=== PATIENT | female | born 1950 | race Caucasian/White ===

== ENCOUNTER → 2017-03-07 | Outpatient (CLI) | payer MEDICARE, OTHER ==
[~2017-03-07] MED LIST: ALLERGY10 MG PO; AMARYL 4MG. TAB4 MG PO; ASPIRIN 81MG TA81 MG PO; BACTRIM DS 8001 TAB PO; FENOFIBRATE134 M1 PO; LIPITOR40 MG PO; LISINOPRIL 5MG T5 MG NG; MELOXICAM15 MG PO; METFORMIN 500M500 MG PO; NEXIUM40 MG PO; ONDANSETRON HYDR4 MG PO; SYNTHROID 0.0.075 MG PO; VYTORIN 10 MG-41 TAB PO
--- NOTE | 2017-03-09 11:08 | RADIOLOGY REPORT PS360 ---
DEXA SCAN.-BONE DENSITY STUDY HIPS AND LUMBAR SPINE HISTORY: Postmenopausal female osteopenia left hip history low calcium intake. Postmenopausal female. Early menopause. Hypothyroidism. TECHNIQUE levothyroxin. TECHNIQUE: DEXA scan hip and lumbar spine The most complete data summary and color graphic presentation of the today's ( and any prior ) DEXA findings are available in PACS. Definition and treatment guidelines included. COMPARISON: January 2015 DEXA LUMBAR SPINE: Normal bone density overall L2 vertebral body demonstrates the lowest T score 0.2 with BMD1.222 g/cm sq Overall mean lumbar L1-L4 T score 1.3 with BMD1.332. G/cm sq . Sclerosis at the L4/5 disc space the left and to the right at L3/4 a increased density in these regions. L1 and L2 appear to be the best comparison levels. These appear relatively stable 2015 prior DEXA the mean T score 1.2 with BMD was1.323g/cm sq Thus when comparing today's study to the prior exam there's been a 0.7% % increasing mean bone density at the lumbar spine- basically stable HIPS: Femoral neck density is best predictor of hip fracture risk . Both right and left femoral neck demonstrate T score -1.2 ... With left BMD0.869 g/cm sq . & right BMD 0.873 Averaging all regions yield today's Hip Mean T score -0.2 with BMD0.977 g/cm sq . 2015 DEXA average hip T score 0.0 with mean BMD1.012 g/cm sq Thus this reflects a 3.5% decreasein overall mean bone density at the hips in the interval. Which is to be expected over this interval time period IMPRESSION 1. LUMBAR SPINE: Normal bone density. 2. HIPS: Overall normal bone density. T score -0.2 Osteopenia of femoral neck bilateral with T-score here = -1.2 WHO criteria for post-menopausal, Women: Normal: T-score at or above -1 SD Osteopenia: T-score between -1 and -2.5 SD Osteoporosis: T-score at or below -2.5 SD
--- NOTE | 2017-03-09 11:41 | RADIOLOGY REPORT PS360 ---
MRI-LOW EXT ANY JOINT W/O-RT MRI right knee \ Ordering. 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 Posterior pain is worse. TECHNIQUE: Multiplanar multisequence imaging performed 1.5T MR COMPARISON January 2015 plain film right knee FINDINGS. Degenerative arthritic changes right knee. Most pronounced severe at medial compartment. Medial Compartment: with prominent diffuse chondral loss and thinning. There appears to be near [id number] appearance at the anterior aspect of medial joint space with reactive changes on both sides the joint here. We also encounter a generous 7 mm degenerative, subchondral cyst measuring beneath anterior/medial aspect of medial femoral condyle in this area. Reactive bone Changes extending throughout this region.. Also smaller subchondral cyst and reactive bone changes seen posteriorly at medial femoral condyle-overlying the posterior horn . Tricompartmental marginal osteophytes which are most pronounced about the medial compartment. With this the medial meniscus is displaced from the joint medially-accompanying these marginal osteophytes.] Medial meniscal degeneration & tear. Likely horizontal tear extending to the superior aspect of free margin at posterior meniscus but this continues with abnormal signal suggesting tear involving inferior margin body medial meniscus.. Lateral Compartment:. Overall Cartilage slightly better maintained but with areas chondral scuffing and thinning and irregularity most evident at tibial plateau. Some of signal irregularity of cartilage it tibial plateau may reflect the chondrocalcinosis seen here on 2014 plain film Generous subchondral, degenerative cystic measuring up to 9 mm height is seen beneath central aspect of the lateral tibial plateau- with Associated osteochondral defect/ irregularity The lateral meniscus overall better maintained. However The anterior horn does appear to be small & degenerated with likely prior minimal tear here.. Patellofemoral Joint. Cartilage surprisingly well-maintained at posterior patella only mild chondral thinning inferiorly. Normal patellofemoral relationships. Marginal osteophytes are seen surrounding the patella- femoral joint margins. Suspect old ACL tear. A Normal ACL is not visualized. ACL is intact with upper normal signal which could reflect prior Sprain or interstitial tear Patellar tendon and quadriceps tendon appear intact. Minimal fluid overlying the patellar tendon could reflect edema or focal inflammation here. The medial collateral ligament is intact. The marginal osteophytes and displaced meniscus to impinge upon the medial collateral ligament is seen on coronal image 17-15. The lateral collateral ligament is intact. There is joint effusion. Associated prominent generous Walsh's cyst. The Walsh's cyst extends over 8 cm length and its major portion. There may also be some additional synovial cyst or extensions of the Walsh's cyst superiorly behind the posterior aspect of the distal femoral metaphysis. Or variations Walsh's cyst more superiorly position behind the distal femoral metaphysis. These additional smaller cysts are seen surrounding near the insertion of the medial head of gastrocnemius upon distal femur . IMPRESSION: [ 1. Degenerative arthritic changes at the right knee-most severe at medial compartment. Details as in text Medial compartment w/ pronounced diffuse chondral thinning,. Basically [id number] appearance anterior aspect at medial compartment with Associated degenerative findings as detailed in text...... 2. Medial Meniscal Tear most evident Involving posterior horn and body. 3. Lateral compartment better maintained. But with degenerative changes & Chondral signal abnormalities & osteochondral irregularities most notable at/beneath lateral tibial plateau . Degeneration & likely old tear anterior horn lateral meniscus 4. Joint effusion with large Walsh's cyst. Additional likely related cystic areas along posterior aspect distal femur femur, most evident just above the insertion site of medial head gastrocnemius 5. Old ACL tear highly suspected.
== END ==
LOC: RAD 14:21
DX: M85.89 Other specified disorders of bone density and structure, multiple sites (principal); Z13.820 Encounter for screening for osteoporosis; M25.561 Pain in right knee

== ENCOUNTER 2017-06-15 14:18 | Emergency (ER) | payer MEDICARE, OTHER ==
[~2017-06-15] VITALS: Ht 160 cm; Wt 73.5 kg
[2017-06-15] MEDS ORDERED: GLIMEPIRIDE 2MG2 MG PO (14:50)
[2017-06-15] MEDS ORDERED: METFORMIN ER500 M1 PO (14:51)
[2017-06-15 15:07] LABS: URINE BILIRUBIN - DIPSTICK NEGATIVE (NEG); URINE BLOOD NEGATIVE (NEG)
[2017-06-15] MEDS ORDERED: ZITHROMAX Z PA250 MG PO (15:14)
[2017-06-15] MEDS ORDERED: FLONASE 50 MCG16 GM (15:14)
--- NOTE | 2017-06-15 15:15 | Urgent Treatment Center Report ---
History of Present Issue Date/Time Seen by Provider 06/15/17 1505 Visit Reason Pt arrived:Walked Presenting Problem:PT C/O ITCHY BURNING EYES,SORE THROAT,HEADACHE, BACK ACHE, URINARY FREQUENCY URGENCY. Location if Accident: Onset of symptoms date/time:06/15/17 or onset unknown for: Have you (or family members/close friends) recently traveled outside the [place]? N If Yes, where/when: Have you had exposure to infectious disease within the past month? TB? Other? Specify: Patient state that she has not been feeling well State that she thinks she may have a sinus infection States that she feels pressure under her eyes, her throat is sore, headache. States that she is also having pain in her lower back area and thinks she may be getting a UTI because she feels like she has to urinate alot ALLERGIES Coded Allergies: MDX - Ciprofloxacin (CIPROFLOXACIN) (Mild, pt gets sick feeling 05/13/15) Home Medications Reported Medications Esomeprazole Magnesium (Nexium 40MG Cap) 40 MG PO DAILY Levothyroxine Sodium (Synthroid 0.075MG) 0.075 MG PO DAILY ASPIRIN (Aspirin) 81 MG PO DAILY Loratadine (Allergy) 10 MG PO DAILY Glimepiride (Glimepiride 2MG Tablet) 2 MG PO QAM Metformin HCl (Metformin ER) 500 MG PO AC History Medical History General CAD? No Angina: No NV: No Hypertension? Yes Hyperlipidemia? Yes CHF? No DVT? No PE? No COPD? No Asthma? No Anemia? No GERD? Yes Gastric ulcers? Yes GI Bleed? No Hernia? Yes Thyroid Problems? Yes Hypothyroidism? Yes CVA? No Seizures? Yes Diabetes? Yes Insulin Dependent: No Insulin Pump: No Home FSBS? Yes Renal Insuffiency? No UTI? Yes Stones? No BPH? No GB Disease: No Nephritic Syndrome? No Asplenia? No Hepatitis? No Sickle Cell Disease? No Arthritis? No Migraines? No Cataracts? No Glaucoma? No MRSA? No HIV? No TB? No Anxiety? No Depression? No Cancer? No More? No Additional hx: ulcerative colitis, MRSA abscess Immunization HX DT/Tetanus 1996 Pneumonia no Surgical Hx Previous Surgery?Y Tubal Ligation Ileostomy Hernia repair Lt eye removed- INJURY carpal tunnel (left hand) Family History Family HX Diabetes Yes CAD Yes Hypertension Yes Hyperlipidemia Yes Cancer No TB No Social History Smoking Hx Smoker: Never Smoker Tobacco: No Packs/day N/A Alcohol Alcohol: No Review of Systems All Other Systems Reviewed and Negative Constitutional chills, fever Eyes no symptoms reported ENT ear pain, nose discharge, nose congestion, throat pain. Respiratory cough, denies shortness of breath, denies wheezing Psychiatric/Neurological headache Physical Exam Vital Signs Vital Signs Date Time Temp Pulse Resp B/P Pulse O2 O2 Flow FiO2 Ox Delivery Rate 06/15 1445 98.2 98 20 165/72 99 General Appearance normal appearance, WD/WN, no apparent distress Ear, Nose, Throat Tenderness noted maxillary sinuses throat red, irritated Respiratory Status Yes: trachea midline, chest symmetrical. No: respiratory distress. Cardiovascular normal exam, regular rate/rhythm, no peripheral edema Neurologic alert, normal exam, oriented x 3 Medical Decision Making LABS/Meds/Orders Pt receiving controlled substance in ED? No Results/Orders Laboratory Tests 06/15/17 1455: Urine Color YELLOW, Urine Appearance Cloudy, Urine pH 5.5, Ur Specific [place] 1.020, Urine Protein NEGATIVE, Urine Ketones NEGATIVE, Urine Blood NEGATIVE, Urine Nitrate NEGATIVE, Urine Bilirubin NEGATIVE, Urine Urobilinogen 0.2, Ur Leukocyte Esterase 1+ H, Urine Glucose 4+ H Orders Procedure Date/time Status [facility] URINE DIPSTICK 06/15 1455 Complete Departure Departure Time of Disposition 1513 Disposition DC Home or Self Care(routine) Clinical Impression Primary Impression: Upper respiratory infection Qualifiers: URI type: unspecified URI Qualified Code: J06.9 - Acute upper respiratory infection, unspecified Condition STABLE Referrals Jovita Toro APRN (Family): 2 Days-Call Office if no improvement or worsening of symptom Patient Instructions Cough, Sinus Headache, Sinusitis, Sore Throat Additional Instructions * Monitor Temp. Tylenol and/or Ibuprofen as needed. ER if fever is no less than 101 despite alternating Tylenol and Ibuprofen * Encourage fluids, water, Gatorade, powerade, pedialyte if infant/toddler/or child * Warm salt water gargles for throat irritation *Warm fluids *Sore throat lozenges *Sleep elevated *humidifier or vaporizer Lots of rest Increase fluids, water, Gatorade, powerade *Flonase 2 sprays each nostril daily but may take 2-3 days to notice improvement with it *Your throat swab was sent to lab for culture. Those results area typically sent to your primary care physician. Be sure to follow up in 2-3 days if no improvement so they can review those results and treat if necessary If you dont have primary care I recommend you get one, but in the mean time you will have to return to a walk in clinic Follow up IMMEDIATELY for new or worsening of symptoms OR no noticeable improvement over the next 48-72 hours. 911 immediately for any life threatening symptoms such as chest pain or difficulty breathing Discharge Counseling Counseled pt/family regarding diagnosis, test results, medications/RX, home care, follow up needs Prescriptions Current Visit Scripts Azithromycin (Zithromycin (Z-ROSSY) 250MG Tab) 250 MG PO DAILY #6 TAB TAKE TWO (2) TABLETS ON DAY 1, THEN ONE (1) TABLET DAY #2 THRU #5 Fluticasone Propionate (Flonase 50 Mcg Nasal [place]) 2 SPRAY NA DAILY #1 BOT at 0501
[2017-06-15 15:19] VITALS: BP 165/72
== END 2017-06-15 15:24 | disposition home or self-care (01) ==
LOC: UTC 14:18
PROVIDERS: Nurse Practitioner
DX: J06.9 Acute upper respiratory infection, unspecified (principal); I10 Essential (primary) hypertension; E78.5 Hyperlipidemia, unspecified; E03.9 Hypothyroidism, unspecified; E11.9 Type 2 diabetes mellitus without complications; Z79.84 Long term (current) use of oral hypoglycemic drugs; Z79.82 Long term (current) use of aspirin; Z79.899 Other long term (current) drug therapy

== ENCOUNTER → 2017-08-11 | Outpatient (CLI) | payer MEDICARE, OTHER ==
[~2017-08-11] MED LIST changes: +FLONASE 50 MCG16 GM; +GLIMEPIRIDE 2MG2 MG PO; +METFORMIN ER500 M1 PO; +ZITHROMAX Z PA250 MG PO
[2017-08-11 09:47] LABS: BUN 11 mg/dL (7-18)
[2017-08-11 09:59] LABS: GFR (ESTIMATED) 55 ML/MIN (59-)
== END ==
LOC: LAB 07:47
PROVIDERS: Nurse Practitioner Family
DX: E11.9 Type 2 diabetes mellitus without complications (principal); E78.5 Hyperlipidemia, unspecified; E03.9 Hypothyroidism, unspecified